=== PATIENT | male | born 1955 | race Caucasian/White ===

== ENCOUNTER → 2018-04-01 | Outpatient (CLI) | payer MEDICAID ==
[2018-04-02 07:06] LABS: HEPATITIS B SURFACE AG Negative (Negative)
== END ==
LOC: M.LAB 12:49
PROVIDERS: Internal Medicine Gastroenterology
DX: B19.20 Unspecified viral hepatitis C without hepatic coma (principal); K74.60 Unspecified cirrhosis of liver